=== PATIENT | female | born 1960 | race American Indian/Alaskan Native ===

== ENCOUNTER 2017-06-26 07:12 | Outpatient (CLI) | payer MEDICARE ==
[2017-06-26 08:16] LABS: Blood Urea Nitrogen 11 mg/dL (7-17)
--- NOTE | 2017-06-26 08:55 | Cat Scan Report ---
CT CERVICAL SPINE WITH AND WITHOUT CONTRAST HISTORY: Cervical pain, right arm numbness. TECHNIQUE: Helical CT before and after IV contrast. Sagittal and coronal reformatted images. COMPARISON: None. FINDINGS: There is mild straightening of the normal cervical lordosis on the sagittal reconstructed images which may be positional in nature. Otherwise, muscular spasm could be considered. Normal bone mineralization. There is normal height and alignment of the cervical vertebral bodies. The posterior elements are intact. There is no evidence for significant degenerative disc disease or facet arthropathy. No evidence for bone lesion, fracture or subluxation. Although intraspinal contents are poorly imaged on CT, there is no suggestion of a large bulging disc or herniation. No central canal stenosis or bony neural foraminal narrowing is detected. No abnormal enhancement following IV contrast. Incidentally noted is an enlarged and diffusely heterogeneous thyroid gland containing multiple tiny nodules. This probably represents a multinodular goiter. IMPRESSION: Mild straightening of the normal cervical lordosis, otherwise, unremarkable cervical spine. No evidence for significant degenerative change, trauma or bone lesion. If further evaluation is needed, MRI or CT cervical myelogram could be obtained. Probable multinodular goiter.
== END 2017-06-26 07:13 | disposition home or self-care (01) ==
LOC: EDBD 07:12 → CT 07:12
PROVIDERS: ATTEND Internal Medicine
DX: M40.292 Other kyphosis, cervical region (principal); R20.2 Paresthesia of skin
CPT/HCPCS: 36415; 72127; 82565; 84520; Q9967